=== PATIENT | male | born 1980 | race Caucasian/White ===

== ENCOUNTER 2017-06-15 12:00 | Outpatient (RCR) | payer MEDICAID, SELFPAY ==
--- NOTE | 2017-04-05 12:06 | HP.PTEVAL_ITS ---
Patient's Visit Information KAZ COSTELLO is a 37 year old M referred to Physical Therapy by Jakub XIE with a diagnosis of neck and LBP. Date of Evaluation: 04/05/17 Physical Therapist: Sean Temple PT, - Visit Plan Frequency: 2-3x /Week Duration: 4-6 Weeks Plan: Aquatic therapy consisting of core and scapular strengthening for 3 weeks. Then consider transfer to land therapy after that time consisting of core and scapular stabilization ex's - Subjective Subjective: Pt reports a chronic Hx of neck and LBP. Pt reports having surgery on his neck in March 2008, and LB surgery on 2015. 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 Pt reports he was chainsawing 5 weeks ago when he reinjured his LB. Pt notes he immediately had R LE radiculopathy, but notes after receiving and injection into his spine, the pain has gone away. Pt reports sleep diff secondary to pain. Pt reports he also gets neck pain and GAYTAN's every time it rains. Pt reports he is going to try PT first, but if this doesnt work, he will be getting and MRI for his LB. Pt reports he has had PT in the past for his pain, and it really helped. He had aquatic therapy. - Pain Neck Pain Intensity (Out of 10): 5 Pain Intensity Range: 9 Low back Pain Intensity (Out of 10): 3 Pain Intensity Range: 9 - Objective Neuro: B UE/LE sensation is WNL to light touch. B biceps and achilles reflex= 1/ 3. MMT: B UE is 5/5 throughout. R knee flex and ext 4-/5. All other LE MMT 5/5 throughout. ROM: C/S rot, sidebending, and retraction are all minimally limited. L/S flexion is moderately limited. All other motions are WNL - Goals Goal 1:: Decrease LBP x 50% to aid with sleep Goal Time Frame: 4-6 Weeks Goal 2:: Increase L/S ROM x 1 grade to aid with RTW Goal Time Frame: 4-6 Weeks Goal 3:: Increase core stability and scapular stability x 1 grade to aid with decreasing nereyda n Goal Time Frame: 4-6 Weeks Goal 4:: I with HEP Goal Time Frame: 4-6 Weeks - Rehabilitation Potential Physical Therapy Diagnosis: Pt has neck and LBP from deg changes over a chronic period of time Rehabilitation Potential: Good - Anticipated Interventions Patient/Client Instruction: Educate patient on: Condition, Plan of Care For the Purpose of:: To improve self management Therapeutic Exercise to Include: Strength training, Endurance training, Body mechanics, Postural training, Flexibilty training, Dynamic Lumbar Stabilization , Scapular Strength/Stabilization For the Purpose of:: To decrease pain, To increase ROM, To improve muscle performance and motor function Cryotherapy (ice pack, ice massage): Yes For the Purpose of:: To decrease pain Thank you for the opportunity to evaluate your patient. For Medicare and Medicare HMO plans, please review the plan of care and approve it. It will need to be FAXED BACK to us at [phone] for Medicare purposes. Please let me know if there are questions or concerns regarding this plan of care. Physician Signature: Date:
--- NOTE | 2017-06-15 13:02 | HP.PTDCSUM ---
HP - PT D/C Summary It has been my pleasure to treat KAZ COSTELLO under orders from DR.ABASAL Monroe for the diagnosis of neck and LBP for a total of 23 visit(s). Discharge Date: Please see the following information for a summary of their discharge status. - Subjective Subjective: Only minor pain this date - Pain Neck Pain Intensity (Out of 10): 0 Low back Pain Intensity (Out of 10): 1 - Overall Improvement % Improvement: 90 - Objective Objective/Function: Pt has decreased LBP to 1/10. Pt is I with HEP. Pt has increased neck and LB ROM to WNL. core and scap stability are now 5/5 as he is not limited with any activity. Rx goals are achieved - Goals Goal 1:: Decrease LBP x 50% to aid with sleep Goal Progress: Goal Met Goal 2:: Increase L/S ROM x 1 grade to aid with RTW Goal Progress: Goal Met Goal 3:: Increase core stability and scapular stability x 1 grade to aid with decreasing nereyda n Goal Progress: Goal Met Goal 4:: I with HEP Goal Progress: Goal Met - Plan Plan: Discharge - D/C Information If there are questions or concerns regarding this patient's physical therapy, please feel free to call me at [phone]. Thank you for the referral of this patient. Sincerely, Sean Temple, PT,
== END 2017-06-15 17:29 | disposition home or self-care (01) ==
LOC: PT 12:00
PROVIDERS: Family Provider Preventive Medicine Occupational Medicine; PCP Preventive Medicine Occupational Medicine; Visit Provider Anesthesiology Pain Medicine
DX: M54.9 Dorsalgia, unspecified (principal)
CPT/HCPCS: 97110; 97113; 97162; 97530

== ENCOUNTER 2017-11-29 17:15 | Emergency (ER) | payer MEDICAID, SELFPAY ==
[2017-11-29 17:16] VITALS: BP 157/92; PULSE 84; RESP 18; TEMP 36.6; O2SAT 98; BMI 28.8
--- NOTE | 2017-11-29 18:13 | CT_ITS ---
STUDY: CTA OF THE ABDOMINAL AORTA AND BILATERAL LOWER EXTREMITIES REASON FOR EXAM: Male, 37 years old. Right leg and hip pain since November 26. Leg cramps. No pneumatosis. RADIATION DOSAGE (If Supplied By Facility): CTDIvol = ( 8.32 ) mGy, DLP = ( 1586.29 ) mGycm TECHNIQUE: Axial CT angiography multi-detector data acquisition was obtained from the diaphragm to the feet following intravenous administration of 75ml ml of Isovue 370 contrast. Axial images and MIP images were reconstructed from the axial data set. Post-processing of the angiographic images was performed, with multiplanar reformation and 3D reconstruction. Individualized dose optimization techniques were used for this CT. TECHNICAL QUALITY: Good COMPARISON: CTA of the chest, November 29, 2017. Descriptors of Narrowing: None (0%) Mild (< 50%) Moderate (50-70%) Severe (70-90%) Subtotal/Total Occlusion (90-100%) Non-Evaluable (technically non-diagnostic FINDINGS: Abdominal aorta: No demonstrated narrowing. Celiac and superior mesenteric arteries: No demonstrated narrowing. Inferior mesenteric artery: No demonstrated narrowing. Right renal artery(arteries): No demonstrated narrowing. Left renal artery(arteries): No demonstrated narrowing. Right common iliac artery: No demonstrated narrowing. Right external iliac artery: No demonstrated narrowing. Right internal iliac artery: No demonstrated narrowing. Left common iliac artery: No demonstrated narrowing. Left external iliac artery: No demonstrated narrowing. Left internal iliac artery: No demonstrated narrowing. RIGHT LOWER EXTREMITY Right common femoral artery: No demonstrated narrowing. Right profundus femoris: No demonstrated narrowing. Right superficial femoral: No demonstrated narrowing. Right popliteal artery: No demonstrated narrowing. Right tibioperoneal trunk: No demonstrated narrowing. Right anterior tibial artery: No demonstrated narrowing. Right posterior tibial artery: No demonstrated narrowing. Right peroneal artery: No demonstrated narrowing. LEFT LOWER EXTREMITY Left common femoral artery: No demonstrated narrowing. Left profundus femoris: No demonstrated narrowing. Left superficial femoral: No demonstrated narrowing. Left popliteal artery: No demonstrated narrowing. Left tibioperoneal trunk: No demonstrated narrowing. Left anterior tibial artery: No demonstrated narrowing. Left posterior tibial artery: No demonstrated narrowing. Left peroneal artery: No demonstrated narrowing. Lung bases are clear. The heart is normal in size. Liver is of normal size and contour. There is mild fatty infiltration. The gallbladder is contracted but otherwise unremarkable. There is no biliary ductal dilatation. Normal spleen. Normal pancreas. Normal adrenal glands. Normal kidneys. Normal IVC and retroperitoneum. Normal stomach. Normal small bowel. Normal colon. Normal appendix. Normal urinary bladder. Normal prostate and seminal vesicles. There is no pelvic lymphadenopathy or mass. No free air or free fluid seen within the peritoneal cavity. There is an umbilical hernia of omental fat. The abdominal wall is otherwise unremarkable. Normal osseous structures. CT/CTA Abd w/Runoff W/WO Contrast IMPRESSION: 1. Normal abdominal aorta and bilateral lower extremity run-off without a hemodynamically significant stenosis. 2. No evidence of acute intra-abdominal or pelvic abnormality. Electronically Signed: Elijah Conte DO at 19:51 EDT Tel [phone], Service support ,
--- NOTE | 2017-11-29 18:13 | CT_ITS ---
STUDY: CTA CHEST REASON FOR EXAM: Male, 37 years old. Right lower leg pain. Numbness from hip down. Prior cervical fusion. RADIATION DOSAGE (If Supplied By Facility): CTDIvol = ( 14.52 ) mGy, DLP = ( 590.28 ) mGycm TECHNIQUE: The examination was performed with the intravenous administration of 75ML ml of Isovue 370 contrast material. Post-processing of the angiographic images was performed, with multiplanar reformation and 3D reconstruction. Individualized dose optimization techniques were used for this CT. COMPARISON: None. FINDINGS: Normal enhancement of the main pulmonary artery and right and left pulmonary arteries. Normal enhancement of the bilateral peripheral pulmonary arteries. There is no demonstrated pulmonary embolism. Normal thoracic aorta and visualized great vessels. There is no demonstrated aortic dissection. Normal heart and pericardium. Normal mediastinum. Normal hilar regions. Normal visualized trachea and bronchi. The lungs are well expanded. Normal pulmonary parenchyma. Normal pleura. Normal chest wall structures. There is evidence of fusion of the lower cervical spine. Normal thoracic spine. Normal visualized upper abdomen. CT/CTA Chest W/WO Contrast IMPRESSION: 1. Normal CTA chest examination, without a demonstrated pulmonary embolism or arterial dissection. 2. Anterior fusion lower cervical spine. Electronically Signed: Elijah Conte DO at 19:47 EDT Tel [phone], Service support ,
--- NOTE | 2017-11-29 18:24 | US_ITS ---
STUDY: VENOUS DOPPLER ULTRASOUND - BILATERAL LOWER EXTREMITIES REASON FOR EXAM: Male, 37 years old. Swelling TECHNIQUE: Ultrasound evaluation of the deep vein system to include forbes-scale imaging and compression was performed. Frobes-scale imaging and Doppler sonographic evaluation, including duplex spectral analysis and qualitative color flow sonography, was performed. COMPARISON: None. FINDINGS: RIGHT LEG Common Femoral Vein: Normal compression, spontaneity and augmentation. Normal color Doppler. Common Femoral Vein/Greater Saphenous Junction: Normal compression, spontaneity and augmentation. Normal color Doppler. Deep Femoral Vein: Normal compression, spontaneity and augmentation. Normal color Doppler. Femoral Proximal: Normal compression, spontaneity and augmentation. Normal color Doppler. Femoral Middle: Normal compression, spontaneity and augmentation. Normal color Doppler. Femoral Distal: Normal compression, spontaneity and augmentation. Normal color Doppler. Popliteal Vein: Normal compression, spontaneity and augmentation. Normal color Doppler. Posterior Tibial Vein: Normal compression, spontaneity and augmentation. Normal color Doppler. Peroneal Vein: Normal compression, spontaneity and augmentation. Normal color Doppler. LEFT LEG Common Femoral Vein: Normal compression, spontaneity and augmentation. Normal color Doppler. Common Femoral Vein/Greater Saphenous Junction: Normal compression, spontaneity and augmentation. Normal color Doppler. Deep Femoral Vein: Normal compression, spontaneity and augmentation. Normal color Doppler. Femoral Proximal: Normal compression, spontaneity and augmentation. Normal color Doppler. Femoral Middle: Normal compression, spontaneity and augmentation. Normal color Doppler. Femoral Distal: Normal compression, spontaneity and augmentation. Normal color Doppler. Popliteal Vein: Normal compression, spontaneity and augmentation. Normal color Doppler. Posterior Tibial Vein: Normal compression, spontaneity and augmentation. Normal color Doppler. Peroneal Vein: Normal compression, spontaneity and augmentation. Normal color Doppler. US/Venous Duplex Imag/Yo Extrem IMPRESSION: Normal venous Doppler ultrasound of the bilateral lower extremities. Electronically Signed: Jagdeep Duke MD at 20:24 EDT , Service support ,
[2017-11-29] MEDS: Ketorolac 15 MG/ML Vial IV (18:34)
[2017-11-29 18:52] LABS: Absolute Lymphocyte Count 2.01 X10^3/ul (0.83-4.51); Absolute Neutrophil Count 4.5 X10^3/uL (2.0-7.7); Basophil# 0.04 X10^3/uL; Basophil% 0.6 % (0-1); Eosinophils% 1.4 % (0-5); Hematocrit 42.6 % (40-54); Hemoglobin 14.6 g/dl (13.0-16.5); Lymphocyte # 2.01 X10^3/ul (4.0); Lymphocyte % 27.9 % (19-41); Mean Corp Hgb Conc 34.3 g/gl (32-36); Mean Corpuscular Hgb 29.9 pg (27.0-32.0); Mean Corpuscular Volume 87.1 fL (80-94); Mean Platelet Vol. 9.6 fl (6.2-12.0); Monocyte# 0.54 X10^3/uL; Monocyte% 7.5 % (0-10); Neutrophil # 4.49 X10^3/uL (2.7-7.7); Neutrophil % 62.2 % (47-70); POSITIVE COUNT NO; POSITIVE DIFFERENTIAL NO; POSITIVE MORPHOLOGY NO; Platelet Count 388 K/mm3 (150-450); RBC Distribution Width CV 13.7 % (11.6-14.6); RBC Distribution Width SD 43.7 fl (35.1-43.9); Red Blood Count 4.89 M/mm3 (4.6-6.2); White Blood Count 7.2 K/mm3 (4.4-11.0)
[2017-11-29 18:54] LABS: Prothrombin Time (Protime)PT. 13.4 SECONDS (11.7-14.9)
[2017-11-29 18:55] LABS: Partial Thromboplast Time 32.3 Seconds (24.1-36.2)
[2017-11-29 18:58] LABS: Anion Gap 7 (5-15); BUN 16 mg/dL (7-18); BUN/Creat Ratio 13.8 RATIO (10-20); Calcium,Total 8.8 mg/dL (8.5-10.1); Chloride 104 mmol/L (98-107); Creatinine, Serum 1.16 mg/dL (0.70-1.30); EST Glomerular Filtration Rate 76 mL/min (>60); Est Glom Filt Rate - Afr Amer 92 mL/min (>60); Estimated Creatinine Clearance 94.67 ml/min; Glucose 98 mg/dL (74-106); Potassium 3.7 mmol/L (3.5-5.1); Sodium Level 139 mmol/L (136-145)
--- NOTE | 2017-11-29 20:32 | ED.DCSUM_ITS ---
- ER Visit Summary Date of Service: 11/29/17 Chief Complaint: Bilateral leg cramping History of Present Illness: The patient is a 37 M presenting for evaluation secondary to bilateral leg cramping. Patient reports over the course the last 4 days he has been having issues with frequent cramps in his lower extremities. He reports that it is associated with pain behind his hamstrings and calves bilaterally. He reports that this seems to be worsened with activity. Patient reports that he has chest pain throughout the course of the day today. Patient denies that he has had any fevers shortness of breath nausea or vomiting. He does report that he has had some paresthesia in his bilateral feet. Patient does endorse that he has had some recent trips to and from [place] by car, as well as to and from [place] by airplane. Patient denies any history of hypercoagulability. He denies any real medical history. He does take Aleve. Review of systems otherwise negative Physical Examination: Vital signs are within normal limits, patient is afebrile. General: Patient is well-nourished well-developed and in no acute distress. Head: Normocephalic, atraumatic Eyes: Pupils equal round and reactive bilaterally, extra occular motion intact bialterally ENT: Moist mucous membranes Neck: Supple, no lymphadenopathy, no JVD, no meningismus CVS: Heart regular rate and rhythm, no murmurs, rubs or gallops, radial pulses 2 + bilaterally Resp: Respirations nondistressed, lung sounds clear bilaterally Abdomen: Soft, nontender, nondistended, no palpable masses, normal bowel sounds Back: Nontender Extremities: Nontender, atraumatic, active full range of motion, no peripheral edema, 2+ DP and PT pulses. No evidence of reproducible tenderness to palpation in the thighs or calves with no palpable cord Skin: warm, no rashes, no petechia Neuro: Alert and oriented x 4, CN 2-12 intact, no lateralizing neurological defecits Psyc: Normal affect Test Results: Duplex ultrasound of the bilateral lower extremities negative, CTA of the chest abdomen and pelvis negative, CBC chemistry and coagulation panels unremarkable Emergency Department Course and Treatment: Patient presented for evaluation secondary to numbness in bilateral cramping in the lower extremities. He has normal pulses but there is at least some concern for the possibility of a vascular etiology given the fact that this is worse with exertion. CT imaging of the entire arterial system from the chest all the way to the feet was obtained was normal. Bilateral duplex ultrasound was normal. Laboratory studies were also found to be normal. Patient had improvement actually with Toradol. Potentially this is an element of some dehydration, he does not really have any evidence of neurologic compromise and this really would not seem consistent with transverse myelitis or multiple sclerosis. Patient potentially has an issue with some sciatica as he has been seated in traveling quite a bit, so he was placed on a course of a Medrol pack. He was encouraged that he needs follow-up with his primary care doctor. He was given signs and symptoms which to return. He voiced understanding of this and the patient was discharged. Disposition: Discharge Impression: 1. Sciatica This note was generated with [employer] dictation software. It may contain incorrect words, spelling, and punctuation that were not noted in review of the chart prior to signing ED Disposition - Plan for ED Patient: Disposition: Home or Assisted Living Chief Complaint: Lower Extremity Injury Diagnosis: Sciatica Instructions: ED Sciatica Prescriptions: MethylPREDNISolone DosePak [Medrol DosePak] 4 mg PO UD #1 box Referrals: Sidney Santana DO [Primary Care Provider] - 3-5 Days
== END 2017-11-29 20:56 | disposition home or self-care (01) ==
PROVIDERS: Emergency Provider Emergency Medicine; Family Provider Preventive Medicine Occupational Medicine; PCP Preventive Medicine Occupational Medicine
DX: M54.32 Sciatica, left side (principal); M54.31 Sciatica, right side; Z79.82 Long term (current) use of aspirin; Z79.891 Long term (current) use of opiate analgesic; Z79.899 Other long term (current) drug therapy
CPT/HCPCS: 71275; 75635; 80048; 85025; 85610; 85730; 93970; 96374; 99283; Q9967; A4216

== ENCOUNTER 2018-07-10 18:05 | Emergency (ER) | payer MEDICAID, SELFPAY ==
[2018-07-10 18:10] VITALS: BP 149/84; PULSE 84; RESP 18; TEMP 36.2; O2SAT 98; BMI 27.8
[2018-07-10] MEDS: HYDROcodone Bitartrate/Apap 5/325 Tablet PO ×2 (21:39→22:48)
[2018-07-10] MEDS: diazePAM 5 MG Tablet PO (21:39)
--- NOTE | 2018-07-10 22:03 | EKG12_ITS ---
Test Reason : CP Blood Pressure : / mmHG Vent. Rate : 083 BPM Atrial Rate : 083 BPM P-R Int : 156 ms QRS Dur : 090 ms QT Int : 350 ms P-R-T Axes : 064 089 055 degrees QTc Int : 411 ms Normal sinus rhythm Normal ECG Confirmed by BREA TOUSSAINT, WILBERT ([id number]), magazine editor ETHAN DECKER ([id number]) on 07/13/2018 9:07:08 AM Referred By: OSORIO
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
[2018-07-10] MEDS: diazePAM 2 MG Tablet PO (22:47)
[2018-07-10 22:49] VITALS: PULSE 82; RESP 18; O2SAT 96
== END 2018-07-10 22:50 | disposition home or self-care (01) ==
PROVIDERS: Emergency Provider Emergency Medicine; Family Provider Preventive Medicine Occupational Medicine; PCP Preventive Medicine Occupational Medicine
DX: M54.5 Low back pain (principal); M54.6 Pain in thoracic spine; G89.29 Other chronic pain; Z87.891 Personal history of nicotine dependence; Z79.891 Long term (current) use of opiate analgesic
CPT/HCPCS: 93005; 99283

== ENCOUNTER → 2018-08-08 08:02 | Outpatient (CLI) | payer MEDICAID, SELFPAY ==
[2018-08-08 07:55] VITALS: BMI 27.8
--- NOTE | 2018-08-08 08:04 | RAD_ITS ---
STUDY: X-RAY - LUMBAR SPINE REASON FOR EXAM: Male, 38 years old. Extreme low back pain. TECHNIQUE: 4 view(s) of the lumbar spine were obtained. COMPARISON: Multiple line film views of the lumbar spine, including lateral flexion-extension March 22, 2016; MRI lumbar spine April 06, 2016. FINDINGS: Normal lumbar lordosis. There is no substantial scoliosis. There is a normal alignment of the vertebrae. Slight anterior depression of the superior L4 vertebral endplate, minor anterior wedging of L1, and borderline anterior wedging of L2 and L3 are unchanged. 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 Anterior osteophyte formation of the superior L4 endplate also again noted. There is stable mild narrowing of the L3-4 and L4-5 intervertebral disc heights, with more moderate narrowing at L5-S1. There is no demonstrated osseous destructive lesion or acute fracture. Very limited range of motion again demonstrated on flexion and extension views, but there is no demonstrated instability. The soft tissue structures are unremarkable. RAD/L/S Spine Comp/w Bending Views IMPRESSION: Stable x-ray examination of the lumbar spine, as described. Very limited range of motion again demonstrated on flexion-extension. Electronically Signed: Jose Barcenas MD at 17:03 EDT , Service support ,
[2018-08-08 10:30] LABS: Absolute Lymphocyte Count 1.96 X10^3/ul (0.83-4.51); Absolute Neutrophil Count 5.6 X10^3/uL (2.0-7.7); Basophil# 0.04 X10^3/uL; Basophil% 0.5 % (0-1); Eosinophil# 0.15 X10^3/uL; Eosinophils% 1.8 % (0-5); Hematocrit 41.8 % (40-54); Hemoglobin 14.6 g/dl (13.0-16.5); Lymphocyte # 1.96 X10^3/ul (4.0); Lymphocyte % 23.1 % (19-41); Mean Corp Hgb Conc 34.9 g/gl (32-36); Mean Corpuscular Hgb 30.4 pg (27.0-32.0); Mean Corpuscular Volume 86.9 fL (80-94); Mean Platelet Vol. 9.6 fl (6.2-12.0); Monocyte# 0.69 X10^3/uL; Monocyte% 8.1 % (0-10); Neutrophil # 5.59 X10^3/uL (2.7-7.7); Platelet Count 333 K/mm3 (150-450); RBC Distribution Width CV 13.3 % (11.6-14.6); RBC Distribution Width SD 42.9 fl (35.1-43.9); Red Blood Count 4.81 M/mm3 (4.6-6.2); White Blood Count 8.5 K/mm3 (4.4-11.0)
[2018-08-08 10:31] LABS: POSITIVE COUNT NO; POSITIVE DIFFERENTIAL NO; POSITIVE MORPHOLOGY NO
[2018-08-08 10:35] LABS: Erythrocyte Sedimentation Rate 12 mm/hr (0-15)
[2018-08-08 10:53] LABS: CRP < 2.90 mg/L (0.0-3.0)
== END ==
PROVIDERS: Family Provider Preventive Medicine Occupational Medicine; PCP Preventive Medicine Occupational Medicine; Referring Provider Orthopaedic Surgery; Visit Provider Orthopaedic Surgery
DX: M54.5 Low back pain (principal); Z86.19 Personal history of other infectious and parasitic diseases
CPT/HCPCS: 36415; 72114; 85025; 85652; 86140

== ENCOUNTER 2019-02-23 09:00 | Outpatient (RCR) | payer MEDICAID, SELFPAY ==
[2018-08-08 07:55] VITALS: BMI 27.8
--- NOTE | 2019-01-11 16:04 | HP.PTEVAL_ITS ---
Patient's Visit Information KAZ COSTELLO is a 38 year old M referred to Physical Therapy by QUINCY NUNO with a diagnosis of HX of Laminectomy. Date of Evaluation: 01/11/19 Physical Therapist: Veronica Claire DPT - Visit Plan Frequency: 2-3x /Week Duration: 4 Weeks Plan: Focus on imprving flexibility, improving LE/Lumbar ROM, core/LE strengthing/stabilization, body mechanics/postural education as needed. Progress HEP exercises t/o POC. 01/11/19 HEP Prescribed: Isometric Abdominals, Supine Bridges, SUpine Hamstring Stretch - Subjective Findings: Hx of laminectomys (3). Most recent procedure 11/21 - Revision L4/L5. prior laminectomy had L4/L5 in 2015. States it wasn;t done correctly, lots of pain and infection, wasn't a good time. Neck procedure - fusion C4 2008, hads had achey, arhritis in neck ever since. Describes pain as achey, annoying. Pain in R leg, from lower back leg all the way up to neck. Worst: 3/10 Agg: Walking long distances, long drives, prolonged sitting/laying, bending, twisting. Best: 2/10 Eases: moving, stretching. [place] N/T. Disrupts sleep - sleeps on back in bed. [place] style home. 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 Typical Activities: ADL's, Grocery shopping, playing in softball/basketball in rec league - stopped playing d/t multiple injuries, playing with kids, yard work. Exercise: Used to work-out, weight lift (UE/LE) - wants to get back at it. Family: with 2 kids 16 & 10 years old. PMH/Meds: Ever since surgery has had headaches 4-5x a week - got migraine prescription to handle how bad they are. [place] dizziness, blurred vision. Just wants to getting back to do normal things. Follow-up with surgeon in 4-5 weeks - can't remember exact date. Met with surgeon two weeks ago - happy with progress just really weak and tight. - Objective Posture: fair t/o- mild rounded shoulders. Gait: No deviations noted- good arm swing and trunk rotation. HR/TR: WNL to gross B touch. SLS: B 30 seconds no LOB or increased sway. Reflexes: L4 2+ S1 2+. ROM: Lumbar: Flexion 50% diminshed (hands to knees), Ext: WNL, SB R/L: 25% diminished, Rot R/L 10% diminished - pain in all planes (describes pain as more tightness/stiffness in muscles). Ankle/Knee/Hip WFL. Strength: Ankle/Knee 5/5 Hip Flex: 4-/5, Ext: 4- /5, Abd. 4+/5, IR 3+/5, ER 4-/5 Core: Poor. Sensation: increased sensation at medial knee & medial calf. LLD: WNL. Pelvic Allignment: WNL. Special Tests: Slump Test negative - Goals Goal 1:: Pt. will be I w/ HEP & progression Goal Time Frame: 4-6 Weeks Goal 2:: Pt. will demo 5/5 R Hip strength Goal Time Frame: 4-6 Weeks Goal 3:: Pt. will demo full Lumbar ROM Goal Time Frame: 4-6 Weeks Goal 4:: Pt. will demo HS flexibility of mod. Goal Time Frame: 4-6 Weeks Goal 5:: Pt. will maintain proper posture t/o tx session to demo improved core strength. Goal Time Frame: 4-6 Weeks - Rehabilitation Potential Physical Therapy Diagnosis: S/P presents w/ hypomobility, impaired flexibility, decreased lumbar ROM, decreased core/LE strength, and pain which leads to difficulty performing ADL's and physical activity. Rehabilitation Potential: Good - Anticipated Interventions Patient/Client Instruction: Educate patient on: Condition For the Purpose of:: To decrease pain Therapeutic Exercise to Include: Strength training, Endurance training, Balance training, Body mechanics, Postural training, Flexibilty training, Dynamic Lumbar Stabilization, Scapular Strength/Stabilization For the Purpose of:: To improve muscle performance and motor function IF ES: Yes Cryotherapy (ice pack, ice massage): Yes Thermo therapy (hot pack): Yes Ultrasound (thermal/non thermal): No For the Purpose of:: To decrease pain Thank you for the opportunity to evaluate your patient. For Medicare and Medicare HMO plans, please review the plan of care and approve it. It will need to be FAXED BACK to us at [phone] for Medicare purposes. For Medicare only, by signing this I certify the plan of care. Please let me know if there are questions or concerns regarding this plan of care. Physician Signature: Date:
--- NOTE | 2019-02-23 10:18 | HP.PTDCSUM ---
HP - PT D/C Summary It has been my pleasure to treat KAZ COSTELLO under orders from QUINCY NUNO, for the diagnosis of HX of Laminectomy for a total of 12 visit(s). Discharge Date: Please see the following information for a summary of their discharge status. - Subjective Subjective: Patient reports that his back is a lot better. He has soreness after his workouts but the pain has been a 1/10 or less- more tightness and that continues to improve. Wants to join the gym- Plans to go back to work in March. Best his back has felt in the last 6-7 years. - Pain neck Pain Intensity (Out of 10): 0 LB Pain Intensity (Out of 10): 1 R HS Pain Intensity (Out of 10): 0 - Overall Improvement % Improvement: 90 - Objective Objective/Function: Posture: good throughout in hard back chair and no back chair Gait: No deviations noted- good arm swing and trunk rotation. HR/TR: WNL to gross B touch. SLS: B 30 seconds no LOB or increased sway. Reflexes: L4 2+ S1 2+. ROM: Lumbar: WFL in all planes with no pain. Ankle/Knee/Hip WFL. Strength: Ankle/Knee 5/5 Hip 5/5 throughout Core: fair plus Sensation: WFL LLD: WNL. Pelvic Allignment: WNL. Special Tests: Slump Test negative - Goals Goal 1:: Pt. will be I w/ HEP & progression Goal Progress: Goal Met Goal 2:: Pt. will demo 5/5 R Hip strength Goal Progress: Goal Met Goal 3:: Pt. will demo full Lumbar ROM Goal Progress: Goal Met Goal 4:: Pt. will demo HS flexibility of mod. Goal Progress: Progressing Goal 5:: Pt. will maintain proper posture t/o tx session to demo improved core strength. Goal Progress: Goal Met - Plan Plan: Discharge to I HEP- scanned into chart. - D/C Information If there are questions or concerns regarding this patient's physical therapy, please feel free to call me at [phone]. Thank you for the referral of this patient. Sincerely, Veronica Claire DPT
== END 2019-02-23 19:00 | disposition home or self-care (01) ==
LOC: PT 09:00
PROVIDERS: Family Provider Preventive Medicine Occupational Medicine; PCP Preventive Medicine Occupational Medicine
DX: Z98.890 Other specified postprocedural states (principal); Z98.1 Arthrodesis status
CPT/HCPCS: 97014; 97110; 97161; 97164; G0283

== ENCOUNTER 2020-08-21 17:30 | Outpatient (RCR) | payer MEDICAID, OTHER, SELFPAY ==
[2018-08-08 07:55] VITALS: BMI 27.8
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
--- NOTE | 2021-02-16 14:58 | HP.PTDCNRP_ITS ---
KAZ COSTELLO was seen in my office for initial evaluation on 07/30/20. The following Plan of Care was established for this patient: Initial Frequency: 3x /Week Initial Duration: 6 Weeks Patient/Client Instruction: Educate patient on: Condition, Plan of Care For the Purpose of:: To decrease pain, To increase ROM, To improve nutrient delivery to tissue, To improve muscle performance and motor function, To increase tolerance to activity/condition/position, To decrease level of s upervision to perform tasks, To improve gait and locomotor functions, To improve health of tissue, To decrease soft tissue restriction, To increase flexibility/ROM, To improve balance, To improve safety with gait Therapeutic Exercise to Include: Strength training, Flexibilty training, Gait and locomotor training, Passive ROM, Active ROM For the Purpose of:: To decrease pain, To decrease swelling/inflammation, To increase ROM, To improve nutrient delivery to tissue, To improve muscle performance and motor function, To improve ability to perform ADL's, To increase tolerance to activity/condition/position, To improve performance and independence with ADL's, To decrease level of supervision to perform tasks, To improve ability of physical actions for home/community/work/leisure, To improve gait and locomotor functions, To improve health of tissue, To decrease soft tissue restriction, To increase flexibility/ROM, To improve balance, To improve safety with gait Functional Training to Include: Gait training For the Purpose of:: To improve gait and locomotor functions, To improve safety with gait Manual Therapy Techniques to Include: Passive ROM, Soft tissue mobilization For the Purpose of:: To decrease pain, To increase ROM, To improve nutrient delivery to tissue IF ES: Yes Cryotherapy (ice pack, ice massage): Yes Thermo therapy (hot pack): Yes Ultrasound (thermal/non thermal): Yes For the Purpose of:: To decrease pain, To decrease swelling/inflammation, To increase ROM, To improve nutrient delivery to tissue This patient was last seen in our office 08/21/20. Pertinent comments regarding their Physical therapy will appear below: Pt no showed his last 3 appointments and will be discharged at this time. At this point I will be discontinuing this patient from physical therapy. I would be happy to see this patient again in the future if found appropriate by the physician. Thank you! Kristi Freire, MPT Balance/Gait/Functional tests - Balance/Special Test Scores Lower Extremity Functional Score: 45
== END 2020-08-21 19:00 | disposition home or self-care (01) ==
LOC: PT 17:30
PROVIDERS: PCP Preventive Medicine Occupational Medicine; Referring Provider Family Medicine; Visit Provider Family Medicine
DX: S86.111D Strain of other muscle(s) and tendon(s) of posterior muscle group at lower leg level, right leg, subsequent encounter (principal); X58.XXXD Exposure to other specified factors, subsequent encounter
CPT/HCPCS: 97110; 97140; 97161

== ENCOUNTER 2021-04-20 15:22 | Outpatient (CLI) | payer OTHER, SELFPAY ==
[2021-04-20 17:56] LABS: Erythrocyte Sedimentation Rate 14 mm/hr (0-20)
[2021-04-20 18:48] LABS: ALB/GLOB Ratio 1.2 RATIO (0.9-2.4); AST(SGOT) 30 U/L (15-37); Alanine Aminotransfer ALT/SGPT 56 U/L (16-61); Albumin, Serum 4.2 g/dL (3.2-5.0); Alkaline Phosphatase 79 U/L (45-117); Anion Gap 6 (5-15); BUN 12 mg/dL (7-18); BUN/Creat Ratio 9.4 RATIO (10-20); CRP 4.33 mg/L (0.0-3.0); Chloride 102 mmol/L (98-107); Creatinine, Serum 1.28 mg/dL (0.70-1.30); EST Glomerular Filtration Rate 67 mL/min (>60); Est Glom Filt Rate - Afr Amer 80 mL/min (>60); Globulin 3.6 g/dL (2.2-4.2); Glucose 79 mg/dL (74-106); Potassium 3.4 mmol/L (3.5-5.1); Protein, Total 7.8 g/dL (6.4-8.2); Sodium Level 136 mmol/L (136-145)
[2021-04-23 09:09] LABS: Endomysial Antibody IgA Negative (Negative)
[2021-04-23 16:59] LABS: Immunoglobulin A 297 mg/dL (90-386); t-Transglutaminase IgA <2 U/mL (0-3)
== END 2021-04-20 23:59 | disposition home or self-care (01) ==
PROVIDERS: PCP Preventive Medicine Occupational Medicine; Referring Provider Internal Medicine Gastroenterology; Visit Provider Internal Medicine Gastroenterology
DX: R19.7 Diarrhea, unspecified (principal)
CPT/HCPCS: 36415; 80053; 82784; 83516; 85652; 86140; 86255